=== PATIENT | male | born 1995 | race Caucasian/White ===

== ENCOUNTER → 2017-05-20 14:42 | Outpatient (CLI) | payer OTHER ==
[~2017-05-20] VITALS: Ht 152.4 cm; Wt 54.4 kg
== END | disposition home or self-care (01) ==
LOC: PPHC 14:42
DX: R05 Cough (principal); R11.0 Nausea; J98.8 Other specified respiratory disorders

== ENCOUNTER → 2017-05-20 16:26 | Outpatient (CLI) | payer OTHER | END | disposition home or self-care (01) | LOC: LAB 16:26 | DX: R10.2 Pelvic and perineal pain (principal); R11.0 Nausea ==

== ENCOUNTER → 2017-05-20 | Outpatient (CLI) | payer OTHER ==
[~2017-05-20] MED LIST: AMOX1TAB5; GILTUSS TR TAB1 EACH PO
== END | disposition home or self-care (01) ==
LOC: RAD 17:07
DX: R05 Cough (principal); J39.9 Disease of upper respiratory tract, unspecified

== ENCOUNTER → 2017-06-16 | Outpatient (CLI) | payer OTHER ==
[~2017-06-16] VITALS: Ht 152.4 cm; Wt 54.4 kg
== END | disposition home or self-care (01) ==
LOC: PPHC 15:55
DX: R42 Dizziness and giddiness (principal); R05 Cough; R11.11 Vomiting without nausea

== ENCOUNTER 2021-05-18 18:17 | Emergency (ER) | payer OTHER ==
[~2021-05-18] VITALS: Ht 165.1 cm; Wt 50.3 kg
[2021-05-18] MEDS ORDERED: ROSADAN45 G1 (18:32)
[2021-05-18] MEDS ORDERED: MILLIPRED5 MG (18:32)
[2021-05-18] MEDS ORDERED: CIPRO100 MG (18:33)
[2021-05-19] MEDS ORDERED: LEVSIN0.125 MG PO (07:38)
[2021-05-19] MEDS ORDERED: INTESTINEX680 M1 PO (07:38)
[2021-05-19] MEDS ORDERED: PEPCID AC20 MG PO (07:38)
[2021-05-19] MEDS ORDERED: CIPROFLOXACIN500 MG PO (07:38)
[2021-05-19] MEDS ORDERED: METRONIDAZOLE500 MG PO (07:38)
== END 2021-05-19 09:21 | disposition home or self-care (01) ==
LOC: ER 18:17
DX: K50.90 Crohn's disease, unspecified, without complications (principal)

== ENCOUNTER 2021-06-01 21:17 | Emergency (ER) | payer OTHER ==
[~2021-06-01] VITALS: Ht 165.1 cm; Wt 54.4 kg
[~2021-06-01 21:17] MED LIST changes: +CIPRO100 MG; +CIPROFLOXACIN500 MG PO; +INTESTINEX680 M1 PO; +LEVSIN0.125 MG PO; +METRONIDAZOLE500 MG PO; +MILLIPRED5 MG; +PEPCID AC20 MG PO; +ROSADAN45 G1
[2021-06-03] MEDS ORDERED: HUMIRA40 MG/0.2 SQ (09:46)
[2021-06-03] MEDS ORDERED: ZOFRAN8 MG (09:47)
[2021-06-03] MEDS ORDERED: PEPCID AC20 MG PO (09:47)
[2021-06-03] MEDS ORDERED: DICYCLOMIN10 MG/5 M1 (09:48)
[2021-06-03] MEDS ORDERED: RAYOS5 MG (09:48)
[2021-06-03] MEDS ORDERED: MULTIVITAMIN1 EACH PO (09:49)
== END 2021-06-02 04:37 | disposition home or self-care (01) ==
LOC: ER 21:17
DX: K50.918 Crohn's disease, unspecified, with other complication (principal); R10.13 Epigastric pain

== ENCOUNTER → 2021-06-03 | Emergency (ER) | payer OTHER ==
[~2021-06-03] VITALS: Ht 165.1 cm; Wt 47.6 kg
[~2021-06-03] MED LIST changes: +DICYCLOMIN10 MG/5 M1; +HUMIRA40 MG/0.2 SQ; +MULTIVITAMIN1 EACH PO; +RAYOS5 MG; +ZOFRAN8 MG
== END | disposition designated cancer center or children's hospital (05) ==
LOC: ER 09:37
DX: K50.90 Crohn's disease, unspecified, without complications (principal); R10.84 Generalized abdominal pain

== ENCOUNTER 2023-08-15 01:15 | Emergency (ER) | payer OTHER ==
[~2023-08-15] VITALS: Ht 165.1 cm; Wt 67.1 kg
[2023-08-15] MEDS ORDERED: METOCLOPRAMIDE HCL 5 MG/ML VIAL IM STA (02:41)
[2023-08-15] MEDS ORDERED: HYOSCYAMINE SULFATE 0.125 MG TAB.SUBL SL STA (02:42)
[2023-08-15] MEDS ORDERED: 0.9 % SODIUM CHLORIDE 1,000 ML IV STA (02:43)
[2023-08-15] MEDS ORDERED: FAMOTIDINE/PF 20 MG/2 ML VIAL IV PUSH STA (02:43)
[2023-08-15] MEDS ORDERED: ONDANSETRON HCL 2 MG/ML VIAL IV STA (02:43)
[2023-08-15] MEDS ORDERED: LOPERAMIDE HCL 2 MG CAPSULE PO STA (02:44)
[2023-08-15] MEDS ORDERED: BISMUTH SUBSALICYLATE 524 MG/30 ML BLIST.PACK PO STA (02:44)
[2023-08-15 03:09] LABS: HEMATOCRIT 46.3 % (39.0-48.0); HEMOGLOBIN 15.7 g/dL (13-16.00); MEAN CELL VOLUME 85.8 fL (80.0-100.00); MEAN CORPUSCULAR HEMOGLOBIN 29.2 pg (27.00-32.0); PLATELET COUNT 222 K/uL (150-450); RED BLOOD COUNT 5.39 M/uL (4.00-6.00); RED CELL DISTRIBUTION WIDTH 13.5 % (11.5-14.5)
[2023-08-15 03:43] LABS: ALBUMIN 4.2 gm/dL (3.4-5.0); BILIRUBIN TOTAL 1.46 mg/dL (0.3-1.2); CALCIUM 9.2 mg/dL (8.5-10.1); CREATININE SERUM 1.1 mg/dL (0.70-1.30); GFR 79.71; GLOBULINA 3.9 G/DL (2.4-3.5); POTASSIUM 3.81 mEq/L (3.5-5.1); TOTAL PROTEIN 8.1 gm/dL (6.4-8.2)
[2023-08-15] MEDS ORDERED: CEFAZOLIN SODIUM 1,000 MG VIAL IM STA (04:13)
== END 2023-08-15 06:01 | disposition home or self-care (01) ==
LOC: ER 01:15
DX: K52.9 Noninfective gastroenteritis and colitis, unspecified (principal)